=== PATIENT | male | born 1980 | race African-American/Black ===

== ENCOUNTER 2016-08-12 20:53 | Emergency (ER) | payer SELFPAY ==
[~2016-08-12] VITALS: Ht 172.7 cm; Wt 86.0 kg
[2016-08-12 20:55] VITALS: BP 113/72; PULSE 97; RESP 16; TEMP 98.6; O2SAT 98
[2016-08-12] MEDS ORDERED: CEPH500C PO (21:36)
[2016-08-12] MEDS ORDERED: BACT800T5 PO (21:36)
[2016-08-12] MEDS ORDERED: DICL50TA3 PO (21:36)
--- NOTE | 2016-08-12 21:41 | PD ---
HPI Chief Complaint: Lump, Cyst, Hernia Time Seen by Provider: 21:37 Travel History International Travel<30 days: No Contact w/Intl Traveler<30days: No Traveled to known affect area: No History of Present Illness HPI 36-year-old black male presents emergency Department with complains of left groin pain and swelling 2 days. He states that he has had problems with infected ingrown hairs of his pubic area. He claims that last month he had a large area of infection in the center of his pubic region when he cut open with a razor express pus. He states that he has again had swelling and pain in the left groin now. He denies any drainage. No fever chills. No nausea vomiting. PFSH Past Medical History Narrative Medical Folliculitis with abscess Immunizations Current: Yes Tetanus Vaccination: < 5 Years Influenza Vaccination: No Past Surgical History Surgical History: No Previous Surgery Social History Alcohol Use: Yes (occ) Tobacco Use: Yes Substance Use: Yes Allergies-Medications (Allergen,Severity, Reaction): Coded Allergies: No Known Allergies (Unverified , 08/12/16) Reported Meds & Prescriptions Reported Meds & Active Scripts Active No Active Prescriptions or Reported Medications Review of Systems Except as stated in HPI: all other systems reviewed are Neg General / Constitutional: No: Fever, Chills Gastrointestinal: No: Nausea, Vomiting, Abdominal Pain Genitourinary: No: Frequency, Discharge Musculoskeletal: No: Myalgias, Arthralgias Skin: Positive Lumps, Positive Lesions Physical Exam Narrative GENERAL: This is a well-nourished, well-developed patient, in no apparent distress. SKIN: Patient has multiple follicular lesions in the pubic region. He has a large tender left inguinal adenopathy. This is indurated but there is no fluctuance. I believe that this is most likely adenopathy as opposed to a underlying abscess., ecchymoses or lesions. Warm and dry. HEAD: Atraumatic. Normocephalic. EYES: PERRL, EOMI, no discharge or injection. No scleral icterus. EARS: Clear NOSE: Nasal turbinates appear normal. THROAT: Mucosa pink and moist. Airway patent. NECK: Trachea midline. supple, moves head freely. LUNGS: Clear to auscultation. CV: Regular in rhythm. ABDOMEN: Soft nontender. EXT: No clubbing cyanosis or edema. Data Data Last Documented VS Vital Signs Date Time Temp Pulse Resp B/P Pulse Ox O2 Delivery O2 Flow Rate FiO2 08/12/16 20:55 98.6 97 16 113/72 98 Room Air Orders Cephalexin (Keflex) (08/12/16 21:45) Sulfamet-Trimeth Ds 800-160 Mg (Bactrim (08/12/16 21:45) Ibuprofen (Motrin) (08/12/16 21:45) MDM Medical Decision Making Medical Screen Exam Complete: Yes Emergency Medical Condition: Yes Medical Record Reviewed: Yes Differential Diagnosis MDM: High Differential diagnoses: Abscess, folliculitis, cellulitis, lymphangitis, abrasion, contact dermatitis, inguinal adenopathy Narrative Course Patient is given Keflex 500 and act from DS by mouth. Motrin 800 mg by mouth. Diagnosis Primary Impression: folliculitis Additional Impression: Inguinal adenopathy Patient Instructions: General Instructions Additional Instructions: Rest. Elevation. keep clean and dry. Warm compresses. Daily wound care with soap, water and Neosporin. Keflex, Bactrim DS, and diclofenac. Follow-up with a primary care doctor in one week. Return to the ER for any problems. Med/Other Pt SpecificInfo: Prescription(s) given, Wound Care Scripts Diclofenac Sodium DR 50 Mg Tabdr50 Mg PO TID #21 TAB Prov:Yanira Lew MD 08/12/16 Sulfamethoxazole-Trimethoprim (Bactrim DS)800-160 Mg Tab1 Tab PO BID #20 TAB Prov:Yanira Lew MD 08/12/16 Cephalexin 500 Mg Nps360 Mg PO Q6H #40 CAP Prov:Yanira Lew MD 08/12/16 Disposition: 01 DISCHARGE HOME Condition: Stable Negro Dodd Aug 12, 2016 21:41
[2016-08-12] MEDS ORDERED: SULFAMETHOXAZOLE-TRIMETHOPRIM DS 800-160 MG TAB PO ONE (21:45)
[2016-08-12] MEDS ORDERED: CEPHALEXIN MONOHYDRATE 500 MG CAP PO ONE (21:45)
[2016-08-12] MEDS ORDERED: IBUPROFEN 800 MG TAB PO ONE (21:45)
== END 2016-08-12 22:05 | disposition home or self-care (01) ==
LOC: NEPK 20:53
DX: L73.9 Follicular disorder, unspecified (principal); R59.0 Localized enlarged lymph nodes; Z72.0 Tobacco use
CPT/HCPCS: 99284

== ENCOUNTER 2016-08-30 16:10 | Emergency (ER) | payer SELFPAY ==
[~2016-08-30] VITALS: Ht 172.7 cm; Wt 90.0 kg
[~2016-08-30 16:10] MED LIST: BACT800T5 PO; CEPH500C PO; DICL50TA3 PO
[2016-08-30 16:14] VITALS: BP 117/68; PULSE 95; RESP 20; TEMP 98.4; O2SAT 97
--- NOTE | 2016-08-30 16:47 | PD ---
HPI Chief Complaint: Skin Problem Time Seen by Provider: 16:45 Travel History International Travel<30 days: No Contact w/Intl Traveler<30days: No Traveled to known affect area: No History of Present Illness HPI 36-year-old Afro[place] male presents the emergency Department with 2 "spider bites" to the left leg that he states he had a couple of days ago. Patient states increased tenderness, erythema, and some drainage from them both. Patient denies IV drug use or history of MRSA. Both martinez are on the left leg, one on the upper medial thigh and one on the lower medial thigh. He denies fever, chills, or other symptoms. He has no known drug allergies. PFSH Past Medical History Immunizations Current: Yes Social History Alcohol Use: Yes (occ) Tobacco Use: Yes Substance Use: Yes Allergies-Medications (Allergen,Severity, Reaction): Coded Allergies: No Known Allergies (Unverified , 08/12/16) Reported Meds & Prescriptions Reported Meds & Active Scripts Active Diclofenac Sodium DR (Diclofenac Sodium) 50 Mg Tabdr 50 Mg PO TID Bactrim DS (Sulfamethoxazole-Trimethoprim) 800-160 Mg Tab 1 Tab PO BID Cephalexin 500 Mg Cap 500 Mg PO Q6H Review of Systems Except as stated in HPI: all other systems reviewed are Neg General / Constitutional: No: Fever, Chills Eyes: No: Visual changes HENT: No: Headaches Cardiovascular: No: Chest Pain or Discomfort Respiratory: No: Shortness of Breath Gastrointestinal: No: Abdominal Pain Genitourinary: No: Dysuria Musculoskeletal: No: Pain Skin: Positive Lesions (see history present illness.), No Rash Neurologic: No: Weakness Psychiatric: No: Depression Endocrine: No: Polydipsia Hematologic/Lymphatic: No: Easy Bruising Physical Exam Narrative GENERAL: Patient appears in [id number] distress. SKIN: Warm and dry. Normal color. Normal turgor. Patient has 2 lesions to the left medial thigh, with localized erythema, warmth, and induration with tenderness central raised area without significant signs of abscess. There is no expressible drainage at this time. HEAD: Atraumatic. Normocephalic. EYES: Pupils equal and round. No scleral icterus. No injection or drainage. ENT: No nasal bleeding or discharge. Mucous membranes pink and moist. Pharynx is clear. Airway is patent. NECK: Trachea midline. Supple nontender. CARDIOVASCULAR: Regular rate and rhythm. RESPIRATORY: No accessory muscle use. Clear to auscultation. Breath sounds equal bilaterally. MUSCULOSKELETAL: Extremities without clubbing, cyanosis, or edema. No obvious deformities. NEUROLOGICAL: Awake and alert. No obvious cranial nerve deficits. Motor grossly within normal limits. Five out of 5 muscle strength in the arms and legs. Normal speech. PSYCHIATRIC: Appropriate mood and affect; insight and judgment normal. Data Data Last Documented VS Vital Signs Date Time Temp Pulse Resp B/P Pulse Ox O2 Delivery O2 Flow Rate FiO2 08/30/16 16:14 98.4 95 20 117/68 97 Room Air MDM Medical Decision Making Medical Screen Exam Complete: Yes Emergency Medical Condition: Yes Differential Diagnosis Insect bite. Cellulitis. Early abscess. Narrative Course Patient is medically stable at time of exam. I do not feel there is significant collection of abscess or pus to required I&D at this time. Patient will be treated empirically with Bactrim DS by mouth one now, and then twice a day 7 days. Patient is also given ibuprofen 800 mg one now and one every 8 hours when necessary #30. Patient is instructed to use hot compresses to the area and rest for the next couple of days. Work note is given. Patient is to follow up if symptoms do not improve or worsen as discussed. Diagnosis Primary Impression: Insect bite Qualified Code: W57.XXXA - Insect bite, initial encounter Additional Impression: Cellulitis Qualified Code: L03.116 - Cellulitis of left lower extremity Referrals: [facility] Primary Care Physician Patient Instructions: Cellulitis (ED), General Instructions, Insect Bite or Sting (ED) Additional Instructions: I do not feel there is significant collection of abscess or pus to required I&D at this time. Patient will be treated empirically with Bactrim DS by mouth one now, and then twice a day 7 days. Patient is also given ibuprofen 800 mg one now and one every 8 hours when necessary #30. Patient is instructed to use hot compresses to the area and rest for the next couple of days. Work note is given. Patient is to follow up if symptoms do not improve or worsen as discussed. Med/Other Pt SpecificInfo: Prescription(s) given Disposition: 01 DISCHARGE HOME Condition: Stable Willi Thompson Aug 30, 2016 16:47
[2016-08-30] MEDS ORDERED: MUPI2%T TOPICAL (16:54)
[2016-08-30] MEDS ORDERED: BACT800T5 PO (16:54)
[2016-08-30] MEDS ORDERED: IBUP800T23 PO (16:54)
[2016-08-30] MEDS ORDERED: SULFAMETHOXAZOLE-TRIMETHOPRIM DS 800-160 MG TAB PO ONE (17:00)
[2016-08-30] MEDS ORDERED: IBUPROFEN 800 MG TAB PO ONE (17:00)
== END 2016-08-30 17:10 | disposition home or self-care (01) ==
LOC: NEPK 16:10
DX: L03.116 Cellulitis of left lower limb (principal); Z72.0 Tobacco use; W57.XXXA Bitten or stung by nonvenomous insect and other nonvenomous arthropods, initial encounter
CPT/HCPCS: 99284

== ENCOUNTER 2017-06-22 11:27 | Emergency (ER) | payer SELFPAY ==
[~2017-06-22] VITALS: Ht 175.3 cm; Wt 82.0 kg
[~2017-06-22 11:27] MED LIST changes: +IBUP1TAB7 PO; +MUPI2%T TOPICAL
[2017-06-22 11:35] VITALS: BP 128/67; PULSE 106; RESP 18; TEMP 98.9; O2SAT 96
[2017-06-22] MEDS ORDERED: CLINDAMYCIN INJ 600 MG in SODIUM CHLORIDE 0.9% INJ 100 ML IV ONE (12:00)
[2017-06-22] MEDS ORDERED: KETOROLAC TROMETHAMINE 30 MG/ML (IVP) VIAL IVP ONE (12:00)
--- NOTE | 2017-06-22 12:05 | PD ---
HPI Chief Complaint: Skin Problem Time Seen by Provider: 11:42 Travel History International Travel<30 days: No Contact w/Intl Traveler<30days: No Traveled to known affect area: No History of Present Illness HPI 37-year-old male who presents to the ED for evaluation of possible spider bite to his left arm. Per patient has had this before. Per patient she has been having this for the past 2 days. Patient has swelling and pain on the elbow. Elbow is swollen compared to the right elbow. Per patient the pain is 9 out of 10. He has had this before and has been seen here before for similar and given antibiotics with improvement. Per patient he believes that he was bit by a "brown recluse ". She does not really know however because he did not see the spider and per patient he has not moved outside of the city. He has no allergies to medication. He denies any history of MRSA. No urinary symptoms. No fevers chills or sweats. Able to move the elbow fully but with some pain. PFSH Past Medical History Medical History: Denies Significant Hx Immunizations Current: Yes Past Surgical History Surgical History: No Previous Surgery Social History Alcohol Use: Yes (occ) Tobacco Use: Yes Substance Use: Yes Allergies-Medications (Allergen,Severity, Reaction): Coded Allergies: No Known Allergies (Unverified Allergy, Unknown, 06/22/17) Reported Meds & Prescriptions Reported Meds & Active Scripts Active Clindamycin (Clindamycin HCl) 150 Mg Cap 300 Mg PO Q8HR [address] (Diclofenac Sodium) 50 Mg Tabdr 50 Mg PO TID Bactrim DS (Sulfamethoxazole-Trimethoprim) 800-160 Mg Tab 1 Tab PO BID Review of Systems Except as stated in HPI: all other systems reviewed are Neg Physical Exam Narrative GENERAL: SKIN: Warm and dry. HEAD: Atraumatic. Normocephalic. EYES: Pupils equal and round. No scleral icterus. No injection or drainage. ENT: No nasal bleeding or discharge. Mucous membranes pink and moist. Tongue is midline. no uvula deviation. NECK: Trachea midline. No JVD. CARDIOVASCULAR: Regular rate and rhythm. No murmurs, S3, S4. RESPIRATORY: No accessory muscle use. Clear to auscultation. Breath sounds equal bilaterally. GASTROINTESTINAL: Abdomen soft, non-tender, nondistended. Hepatic and splenic margins not palpable. MUSCULOSKELETAL: Extremities without clubbing, cyanosis, or edema. No obvious deformities. Full range of motion of the upper and lower extremities bilaterally. Patient does have what appears to be an insect bite to his lateral aspect of his left elbow with soft tissue swelling but no signs of induration. Patient does have what appears to be a very small less than half a centimeter area of blister like lesion. Tender to touch. Warm to touch. 2+ pulses bilaterally. Sensation intact bilaterally. NEUROLOGICAL: Awake and alert. No obvious cranial nerve deficits. Motor grossly within normal limits. Five out of 5 muscle strength in the arms and legs. Normal speech. PSYCHIATRIC: Appropriate mood and affect; insight and judgment normal. Data Data Last Documented VS Vital Signs Date Time Temp Pulse Resp B/P (MAP) Pulse Ox O2 Delivery O2 Flow Rate FiO2 06/22/17 11:35 98.9 106 18 128/67 (87) 96 Orders Orders Complete Blood Count With Diff (06/22/17 11:53) Iv Access Insert/Monitor (06/22/17 11:53) Ketorolac Inj (Toradol Inj) (06/22/17 12:00) Clindamycin Inj (Cleocin Inj) (06/22/17 12:00) Ed Discharge Order (06/22/17 12:38) Labs Laboratory Tests Test 06/22/17 12:10 White Blood Count 8.2 TH/MM3 Red Blood Count 4.65 MIL/MM3 Hemoglobin 14.5 GM/DL Hematocrit 42.8 % Mean Corpuscular Volume 92.1 FL Mean Corpuscular Hemoglobin 31.3 PG Mean Corpuscular Hemoglobin Concent 34.0 % Red Cell Distribution Width 14.2 % Platelet Count 209 TH/MM3 Mean Platelet Volume 7.2 FL Neutrophils (%) (Auto) 72.2 % Lymphocytes (%) (Auto) 18.5 % Monocytes (%) (Auto) 8.2 % Eosinophils (%) (Auto) 0.7 % Basophils (%) (Auto) 0.4 % Neutrophils # (Auto) 5.9 TH/MM3 Lymphocytes # (Auto) 1.5 TH/MM3 Monocytes # (Auto) 0.7 TH/MM3 Eosinophils # (Auto) 0.1 TH/MM3 Basophils # (Auto) 0.0 TH/MM3 CBC Comment DIFF FINAL Differential Comment MDM Medical Decision Making Medical Screen Exam Complete: Yes Emergency Medical Condition: Yes Medical Record Reviewed: Yes Interpretation(s) CBC Diagram 06/22/17 12:10 Differential Diagnosis Cellulitis versus abscess versus insect bite versus normal exam Narrative Course 37-year-old male that presents to the ED for evaluation of possible insect bite. Patient was properly examined and was found to have signs and symptoms consistent with appears to be cellulitis. Patient does appear to have what appears to be possible insect bite but again unclear as to what actually bit him. I do not suspect brown recluse bite as is not an endemic area for this. There is no necrotic tissue but definetly cellulitic changes. I reviewed his medical records that he has never actually been bit by one except he has been having cellulitis and folliculitis in the past. He has had good results with antibiotics. At this time she is soft tissue swelling of the arm appears to be significant so patient will be started on IV antibiotics here to get the symptoms better. Patient was given Toradol IV. CBC was ordered. Patient will be discharged home with prescriptions for Bactrim and clindamycin and diclofenac sodium. Told to follow-up in 2 days with PCP or ED if not better. See ED worsening symptoms. Ice or warm compresses. Diagnosis Primary Impression: Cellulitis Qualified Codes: L03.114 - Cellulitis of left upper limb Additional Impression: Insect bite Qualified Codes: W57.XXXA - Bitten or stung by nonvenomous insect and other nonvenomous arthropods, initial encounter Patient Instructions: General Instructions Additional Instructions: Take medication as prescribed. Follow-up with PCP. See ED if worsening symptoms. Med/Other Pt SpecificInfo: Prescription(s) given, Wound Care Scripts Clindamycin (Clindamycin) 150 Mg Cap 300 MG PO Q8HR for Infection for 14 Days, CAP 0 Refills Prov: Yanira Lew MD 06/22/[address] (Diclofenac Sodium DR) 50 Mg Tabdr 50 MG PO TID, #21 TAB Prov: Yanira Lew MD 06/22/17 Sulfamethoxazole-Trimethoprim (Bactrim DS) 800-160 Mg Tab 1 TAB PO BID for Infection, #14 TAB Prov: Yanira Lew MD 06/22/17 Disposition: 01 DISCHARGE HOME Condition: Stable Hernando Sutton Jun 22, 2017 12:05
[2017-06-22] MEDS ORDERED: CLIN150C14 PO (12:07)
[2017-06-22] MEDS ORDERED: BACT800T5 PO (12:07)
[2017-06-22] MEDS ORDERED: DICL50TA3 PO (12:07)
[2017-06-22 12:26] LABS: AUTOMATED NEUTROPHIL # 5.9 TH/MM3 (1.8-7.7); BASOPHIL % 0.4 % (0.0-2.0); EOSINOPHIL # 0.1 TH/MM3 (0-0.4); EOSINOPHIL % 0.7 % (0.0-4.0); HEMATOCRIT 42.8 % (39.0-51.0); HEMOGLOBIN 14.5 GM/DL (13.0-17.0); LYMPH % 18.5 % (9.0-44.0); LYMPHOCYTE # 1.5 TH/MM3 (1.0-4.8); MEAN CELL VOLUME 92.1 FL (80.0-100.0); MEAN CORPUSCULAR HEMOGLOBIN 31.3 PG (27.0-34.0); MEAN PLATELET VOLUME 7.2 FL (7.0-11.0); MONO % 8.2 % (0.0-8.0); MONOCYTE # 0.7 TH/MM3 (0-0.9); NEUT % 72.2 % (16.0-70.0); PLATELET COUNT 209 TH/MM3 (150-450); RED BLOOD COUNT 4.65 MIL/MM3 (4.50-5.90); RED CELL DISTRIBUTION WIDTH 14.2 % (11.6-17.2); WHITE BLOOD COUNT 8.2 TH/MM3 (4.0-11.0)
== END 2017-06-22 13:11 | disposition home or self-care (01) ==
LOC: NEPE 11:27
DX: S50.362A Insect bite (nonvenomous) of left elbow, initial encounter (principal); L03.114 Cellulitis of left upper limb; W57.XXXA Bitten or stung by nonvenomous insect and other nonvenomous arthropods, initial encounter; Z72.0 Tobacco use
CPT/HCPCS: 85025; 96374; 96375; 99284; J1885